=== PATIENT | female | born 1970 | race African-American/Black ===

== ENCOUNTER 2018-02-26 16:00 | Observation (INO) | payer OTHER ==
--- NOTE | 2018-02-26 16:41 | PDOC ---
History of Present Illness - History of Present Illness Initial Comments: 48yo F with family history of HTN, HLD presenting with episode of facial numbness. Patient reports she was talking on the phone around 2:30pm yesterday when she suddenly felt numbness on the left side of her face, below her eye and extending down to her chin. She looked in the mirror and saw no facial drooping or lopsided smile. Patient denies dysarthria or difficult word finding. She reports no other focal neurologic defects. She took two alleve and the episode ended after about a half hour. Patient saw her primary care physician, Dr. Gutierrez , today who recommended that she come to the ED to be assessed for TIA. 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 No family or personal history of TIA or CVA. Patient current feels like she is at her baseline and denies fever, chills, chest pain, or shortness of breath. <Swathi Shafer - Last Filed: 02/26/18 20:02> <Gesron Billings - Last Filed: 02/26/18 22:42> - General Chief Complaint: Head/Neck problem Stated Complaint: PCP SENT/NUMBNESS Time Seen by Provider: 02/26/18 16:40 NIH Stroke Scale - Last Known Well Date/Time & Onset Date Last Known Well: 02/25/18 Time Last Known Well: 02:30 - Initial Evaluation Level of consciousness: Alert Ask patient the month and their age: Answers both correctly Ask patient to open & close eyes; make fist and let go: Obeys both correctly Best gaze (horizontal eye movement): Normal Visual field testing: No visual field loss Facial paresis (Show teeth/raise eyebrows/close eyes tight): Normal symmetrical movement Motor Function: Left Arm: Normal Motor Function: Right Arm: Normal (extends arm 90 (or 45) degrees for 10 seconds without drift Motor Function: Left Leg: Normal (extends leg 30 degrees for 5 seconds without drift) Motor Function: Right Leg: Normal (extends leg 30 degrees for 5 seconds without drift) Limb Ataxia: No ataxia Sensory(Use pinprick test arms,legs,trunk,face/side to side): Normal Best language (Describe picture, name items, read sentences): No Aphasia Dysarthria (read several words): Normal articulation Extinction and Inattention: No abnormality - Total Score NIH Stroke Scale Score: 0 <Gerson Billings - Last Filed: 02/26/18 22:42> Past History - Past Medical History COPD: No CHF: No - Immunization History Immunization Up to Date: Yes - Suicide/Smoking/Psychosocial Hx Smoking History: Never smoked Have you smoked in the past 12 months: No Information on smoking cessation initiated: No Hx Alcohol Use: No Drug/Substance Use Hx: No Substance Use Type: None <SoniSwathi - Last Filed: 02/26/18 20:02> <Gerson Billings - Last Filed: 02/26/18 22:42> - Past Medical History Allergies/Adverse Reactions: Allergies Allergy/AdvReac Type Severity Reaction Status Date / Time No Known Drug Allergies Allergy Verified 02/26/18 17:37 Home Medications: Ambulatory Orders NK [No Known Home Medication] 02/26/18 Review of Systems - Review of Systems Comments:: Constitutional: no fever, no chills HEENT: no throat pain, no dysphagia Cardiovascular: no chest pain, no palpitations Respiratory: no cough, no shortness of breath Gastrointestinal: no abdominal pain, no nausea, no vomiting Genitourinary: no dysuria, no frequency Musculoskeletal: no myalgia, no arthralgia Skin: no rash, no itching Neurologic: no headache, no dizziness <SoniSwathi - Last Filed: 02/26/18 20:02> *Physical Exam - Vital Signs Last Vital Signs Temp Pulse Resp BP Pulse Ox 98.2 F 108 H 17 142/93 99 02/26/18 16:15 02/26/18 16:15 02/26/18 16:15 02/26/18 16:15 02/26/18 16:15 - Physical Exam Comments: General: Awake, alert, and fully oriented, in no acute distress Head: no signs of trauma Eyes: EOMI, sclera anicteric ENT: Moist mucus membranes Neck: Normal ROM, supple Lungs: Lungs clear, Normal breath sounds Cardio: Regular rhythm, S1 and S2 present Abdomen: Soft, nontender. No guarding, no rebound, no masses Extremities: Normal range of motion, Distal pulses present SKIN: Warm, Dry, normal turgor Neurologic: Cranial nerves II through XII grossly intact. Normal speech, sensation, strength, coordination, and gait. <So,Swathi - Last Filed: 02/26/18 20:02> - Vital Signs Last Vital Signs Temp Pulse Resp BP Pulse Ox 98.2 F 108 H 17 142/93 99 02/26/18 16:15 02/26/18 16:15 02/26/18 16:15 02/26/18 16:15 02/26/18 16:15 <Gerson Billings - Last Filed: 02/26/18 22:42> ED Treatment Course - LABORATORY CBC & Chemistry Diagram: 02/26/18 17:34 02/26/18 17:34 <Swathi Shafer - Last Filed: 02/26/18 20:02> - LABORATORY CBC & Chemistry Diagram: 02/26/18 17:34 02/26/18 17:34 - ADDITIONAL ORDERS Additional order review: Laboratory Results 02/26/18 02/26/18 02/26/18 20:55 17:34 17:34 PT with INR INR Sodium 137 Potassium 4.3 Chloride 105 Carbon Dioxide 24 Anion Gap 8 BUN 9 Creatinine 0.9 Creat Clearance w eGFR > 60 Random Glucose 87 Calcium 9.5 Total Bilirubin 0.4 AST 19 ALT 31 Alkaline Phosphatase 110 Total Protein 8.0 Albumin 3.9 Blood Type B POSITIVE B POSITIVE Antibody Screen Negative 02/26/18 17:34 PT with INR 11.90 INR 1.01 Sodium Potassium Chloride Carbon Dioxide Anion Gap BUN Creatinine Creat Clearance w eGFR Random Glucose Calcium Total Bilirubin AST ALT Alkaline Phosphatase Total Protein Albumin Blood Type Antibody Screen 02/26/18 17:34 RBC 5.02 MCV 85.0 MCHC 32.6 RDW 14.4 MPV 8.5 Neutrophils % 59.1 Lymphocytes % 32.9 Monocytes % 7.0 Eosinophils % 0.7 Basophils % 0.3 - RADIOLOGY Radiology Studies Ordered: Category Date Time Status CHEST PA & LAT [RAD] Stat Radiology 02/26/18 21:43 Ordered - Medications Given in the ED: ED Medications Discontinued Medications Generic Name Dose Route Start Last Admin Trade Name Freq PRN Reason Stop Dose Admin Aspirin 162 mg 02/26/18 21:25 02/26/18 21:37 Asa - PO 02/26/18 21:26 162 mg ONCE ONE Administration <Gerson Billings - Last Filed: 02/26/18 22:42> Medical Decision Making - Medical Decision Making 48yo F with family history of HTN, HLD presenting with episode of facial numbness. -DDX includes but not limited to TIA, CVA, brain bleed, brain mass, Afib, PE/DVT , MS, Lyme -ABCD score is 2 which puts patient in low risk category; possible discharge with outpatient neurology follow-up -CT head negative for acute pathology -Pending carotid ultrasound radiology report and EKG -Care assumed by Dr. Stewart 02/26/18 20:04 <Swathi Shafer - Last Filed: 02/26/18 20:02> *DC/Admit/Observation/Transfer <Swathi Shafer - Last Filed: 02/26/18 20:02> - Discharge Dispostion Decision to Admit order: Yes <Gerson Billings - Last Filed: 02/26/18 22:42> Diagnosis at time of Disposition: TIA (transient ischemic attack) - Discharge Dispostion Condition at time of disposition: Fair - Referrals Referrals: Mag Laguerre MD [Primary Care Provider] -
--- NOTE | 2018-02-26 17:27 | PDOC ---
Attending Attestation - HPI HPI: 02/26/18 19:28 The patient is a 48 year old female, with no significant past medical history, who presents to the ED complaining of left sided facial weakness. She notes that her symptoms started 24 hours ago and lasted 30 minutes. The patient denies chest pain, shortness of breath, headache and dizziness. Denies fever, chills, nausea, vomiting, diarrhea or constipation. Denies dysuria , frequency, urgency and hematuria. Family history: HTN Allergies: None Past surgical history: None reported Social History: No alcohol, tobacco or drug use reported <Ari Andres - Last Filed: 02/26/18 19:28> - Resident Resident Name: Swathi Shafer - ED Attending Attestation I have performed the following: I have examined & evaluated the patient, The case was reviewed & discussed with the resident, I agree w/resident's findings & plan, Exceptions are as noted - Physicial Exam PE: 02/26/18 18:18 Patient is awake and alert, well-nourished, in no distress. Patient is symptom- free. Normocephalic and atraumatic PERRLA, EOMI No carotid bruits bilaterally CTA RRR cranial nerves II through XII are grossly intact; motor is 5 of 54; no pronation drift; gait is stable. - Medical Decision Making 02/26/18 18:20 48-year-old female with family history of hypertension presents to the ER 24 hours after a 30 minute, self limiting episode of left sided facial numbness and questionable lower facial weakness. In the ER, patient is asymptomatic. TIAs suspected. ABCD score is noted to be 4. Will obtain CT of head to rule out intracranial hemorrhage; will obtain carotid Doppler as well as EKG to rule out atrial fibrillation. We'll consult neurology. Will reassess. 02/26/18 22:[address] of head shows no evidence of acute intracranial pathology. Carotid Doppler ultrasound shows no evidence of significant stenosis. EKG shows no evidence of A. fib or acute ischemia. Will administer aspirin. We'll place an op 's/telemetry for neurological evaluation. NIHH stroke is 0. <Gerson Billings - Last Filed: 02/26/18 22:41>
[2018-02-26 17:44] LABS: BASO % 0.3 % (0-2.0); EOS % 0.7 % (0-4.5); HEMATOCRIT 42.7 % (32.4-45.2); HEMOGLOBIN 13.9 GM/dL (10.7-15.3); LYMPH % 32.9 % (8-40); MCH 27.8 pg (25.7-33.7); MCHC 32.6 g/dl (32.0-36.0); MEAN PLT VOLUME 8.5 fl (7.5-11.1); NEUT % 59.1 % (42.8-82.8); PLATELET COUNT 360 K/MM3 (134-434); RBC 5.02 M/mm3 (3.60-5.2); RDW 14.4 % (11.6-15.6); WHITE BLOOD COUNT 6.9 K/mm3 (4.0-10.0)
[2018-02-26 17:54] LABS: INR 1.01 (0.83-1.09); PROTHROMBIN TIME (PATIENT) 11.9 SEC (9.7-13.0)
[2018-02-26 18:14] LABS: ALBUMIN 3.9 g/dl (3.4-5.0); ALK PHOS 110 U/L (45-117); ANION GAP 8 MMOL/L (8-16); BILIRUBIN,TOTAL 0.4 mg/dL (0.2-1); BLOOD UREA NITROGEN 9 mg/dL (7-18); CALCIUM 9.5 mg/dL (8.5-10.1); CHLORIDE 105 mmol/L (98-107); CO2 24 mmol/L (21-32); CREATININE 0.9 mg/dL (0.55-1.3); GLUCOSE,RANDOM 87 mg/dL (74-106); POTASSIUM 4.3 mmol/L (3.5-5.1); SGOT/AST 19 U/L (15-37); SGPT/ALT 31 U/L (13-61); SODIUM 137 mmol/L (136-145)
[2018-02-26] MEDS ORDERED: ASPIRIN 81 MG CHEWABLE TABLETS PO ONE (21:25)
[2018-02-26] MEDS ORDERED: ASPIRIN 81 MG CHEWABLE TABLETS ONE (21:36)
[2018-02-26] MEDS ORDERED: SODIUM CHLORIDE 1,000 ML IV SCH (21:45)
--- NOTE | 2018-02-26 22:11 | HP ---
CHIEF COMPLAINT: Facial Numbness PCP: Dr. Laguerre HISTORY OF PRESENT ILLNESS: This is a pleasant 48 y/o woman with a past medical history of HTN (no current meds). Who presents to the ED from her PCP's office with elevated BP, L-sided facial numbness and L- sided droop x 1 day now resolved. Patient reports while at work she began having L sided facial numbness/droop, and lightheadedness for approximately 30 min. Patient reports taking 2 Aleeve at home. Patient reports having a family hx of [place], HTN. Patient denies fever, chills, cough, CARRILLO, blurred vision, dysarthria, dysphagia, SOB, CP, palpitations, N/V/D, constipation, dysuria. ER course was notable for: (1) Head CT- neg ICH (2) Carotid Doppler- no evidence of hemodynamically significant stenosis (3) EKG- NSR 97 bpm, non specific T wave abnormality (4) BP 142/93 Recent Travel: None PAST MEDICAL HISTORY: HTN PAST SURGICAL HISTORY: None Social History: Smoking: Never Alcohol: Social Drugs: Never Lives with family, employed Install [employer] Family History: Father: DM Mother: HTN Brother: [place] age 43 Sister: Alive and Well Allergies No Known Drug Allergies Allergy (Verified 02/26/18 17:37) HOME MEDICATIONS: Home Medications Medication Instructions Recorded NK [No Known Home Medication] 02/26/18 REVIEW OF SYSTEMS CONSTITUTIONAL: Absent: fever, chills, diaphoresis, generalized weakness, malaise, loss of appetite, weight change HEENT: Absent: rhinorrhea, nasal congestion, throat pain, throat swelling, difficulty swallowing, mouth swelling, ear pain, eye pain, visual changes CARDIOVASCULAR: lightheadedness Absent: chest pain, syncope, palpitations, irregular heart rate, lightheadedness , peripheral edema RESPIRATORY: Absent: cough, shortness of breath, dyspnea with exertion, orthopnea, wheezing, stridor, hemoptysis GASTROINTESTINAL: Absent: abdominal pain, abdominal distension, nausea, vomiting, diarrhea, constipation, melena, hematochezia GENITOURINARY: Absent: dysuria, frequency, urgency, hesitancy, hematuria, flank pain, genital pain MUSCULOSKELETAL: Absent: myalgia, arthralgia, joint swelling, back pain, neck pain SKIN: Absent: rash, itching, pallor HEMATOLOGIC/IMMUNOLOGIC: Absent: easy bleeding, easy bruising, lymphadenopathy, frequent infections ENDOCRINE: Absent: unexplained weight gain, unexplained weight loss, heat intolerance, cold intolerance NEUROLOGIC: paresthesias Absent: headache, focal weakness, dizziness, unsteady gait, seizure, mental status changes, bladder or bowel incontinence PSYCHIATRIC: Absent: anxiety, depression, suicidal or homicidal ideation, hallucinations. PHYSICAL EXAMINATION Vital Signs - 24 hr 02/26/18 16:15 Temperature 98.2 F Pulse Rate 108 H Respiratory 17 Rate Blood Pressure 142/93 O2 Sat by Pulse 99 Oximetry (%) GENERAL: Obese, awake, alert, and fully oriented, in no acute distress. HEAD: Normal with no signs of trauma. EYES: Pupils equal, round and reactive to light, extraocular movements intact, sclera anicteric, conjunctiva clear. No lid lag. EARS, NOSE, THROAT: Ears normal, nares patent, oropharynx clear without exudates. Moist mucous membranes. NECK: Normal range of motion, supple without lymphadenopathy, JVD, or masses. LUNGS: Breath sounds equal, clear to auscultation bilaterally. No wheezes, and no crackles. No accessory muscle use. HEART: Regular rate and rhythm, normal S1 and S2 without murmur, rub or gallop. ABDOMEN: Soft, nontender, not distended, normoactive bowel sounds, no guarding, no rebound, no masses. No hepatomegaly or splenomegaly. MUSCULOSKELETAL: Normal range of motion at all joints. No bony deformities or tenderness. No CVA tenderness. UPPER EXTREMITIES: 2+ pulses, warm, well-perfused. No cyanosis. No clubbing. No peripheral edema. LOWER EXTREMITIES: 2+ pulses, warm, well-perfused. No calf tenderness. No peripheral edema. NEUROLOGICAL: Cranial nerves II-XII intact. Normal speech. Gait not observed. PSYCHIATRIC: Cooperative. Good eye contact. Appropriate mood and affect. SKIN: Warm, dry, normal turgor, no rashes or lesions noted, normal capillary refill. Laboratory Results - last 24 hr 02/26/18 02/26/18 02/26/18 17:34 17:34 17:34 WBC 6.9 RBC 5.02 Hgb 13.9 Hct 42.7 MCV 85.0 MCH 27.8 MCHC 32.6 RDW 14.4 Plt Count 360 MPV 8.5 Absolute Neuts (auto) 4.1 Neutrophils % 59.1 Lymphocytes % 32.9 Monocytes % 7.0 Eosinophils % 0.7 Basophils % 0.3 Nucleated RBC % 0 PT with INR 11.90 INR 1.01 Sodium 137 Potassium 4.3 Chloride 105 Carbon Dioxide 24 Anion Gap 8 BUN 9 Creatinine 0.9 Creat Clearance w eGFR > 60 Random Glucose 87 Calcium 9.5 Total Bilirubin 0.4 AST 19 ALT 31 Alkaline Phosphatase 110 Total Protein 8.0 Albumin 3.9 Blood Type Antibody Screen 02/26/18 02/26/18 17:34 20:55 WBC RBC Hgb Hct MCV MCH MCHC RDW Plt Count MPV Absolute Neuts (auto) Neutrophils % Lymphocytes % Monocytes % Eosinophils % Basophils % Nucleated RBC % PT with INR INR Sodium Potassium Chloride Carbon Dioxide Anion Gap BUN Creatinine Creat Clearance w eGFR Random Glucose Calcium Total Bilirubin AST ALT Alkaline Phosphatase Total Protein Albumin Blood Type B POSITIVE B POSITIVE Antibody Screen Negative ASSESSMENT/PLAN: This is a 48 y/o woman with a PMHx of HTN ( no current meds). Placed in Telemetry Observation for TIA for further evaluation of their emergent condition. Plan: FEN PO fluids as tolerated Replete lytes prn Low Na, Low Cholesterol Diet DVT ppx OOB SCDs Consider AC if LOS > 48hrs Code Status: Full Code Dispo: Observation Problem List - Problem (1) TIA (transient ischemic attack) Assessment/Plan: r/o TIA vs CVA NIHSS [address]- neg ICH, mass or lesion Carotid Doppler- no evidence of hemodynamically significant stenosis Nuero checks Appreciate Neurology Consult Swallow Eval Serial Enzymes Asa Lipid Panel-pending Code(s): G45.9 - TRANSIENT CEREBRAL ISCHEMIC ATTACK, UNSPECIFIED (2) Hypertension Assessment/Plan: - Patient reports being told her BP was elevated 160/90, 2 yrs ago her PCP was monitoring it - Patient would benefit from a Thiazide - Monitor BP - Low Na Diet - Monitor renal function Code(s): I10 - ESSENTIAL (PRIMARY) HYPERTENSION (3) Obesity (BMI 30.0-34.9) Assessment/Plan: Counseled on weight reduction and Carb control Code(s): E66.9 - OBESITY, UNSPECIFIED Visit type - Emergency Visit Emergency Visit: Yes ED Registration Date: 02/26/18 Care time: The patient presented to the Emergency Department on the above date and was hospitalized for further evaluation of their emergent condition. - New Patient This patient is new to me today: Yes Date on this admission: 02/26/18 - Critical Care Critical Care patient: No
[2018-02-26 23:26] LABS: INR 1.08 (0.83-1.09); PROTHROMBIN TIME (PATIENT) 12.8 SEC (9.7-13.0)
[2018-02-26 23:38] LABS: CHOLESTEROL 162 mg/dL (50-200); HDL CHOLESTEROL 44 mg/dL (40-60); TRIGLYCERIDES 65 mg/dL (0-150)
[2018-02-27 02:46] VITALS: BMI 30.6
[2018-02-27 05:55] VITALS: TEMP 98.2
[2018-02-27 06:39] LABS: ANION GAP 8 MMOL/L (8-16); BLOOD UREA NITROGEN 12 mg/dL (7-18); CALCIUM 8.8 mg/dL (8.5-10.1); CHLORIDE 109 mmol/L (98-107); CO2 25 mmol/L (21-32); CREATININE 0.9 mg/dL (0.55-1.3); GLUCOSE,RANDOM 103 mg/dL (74-106); POTASSIUM 4.1 mmol/L (3.5-5.1); SODIUM 142 mmol/L (136-145)
[2018-02-27 07:04] LABS: BASO % 0.4 % (0-2.0); EOS % 1.8 % (0-4.5); HEMATOCRIT 38.9 % (32.4-45.2); HEMOGLOBIN 12.6 GM/dL (10.7-15.3); LYMPH % 40.4 % (8-40); MCH 27.5 pg (25.7-33.7); MCHC 32.5 g/dl (32.0-36.0); MEAN CELL VOLUME 84.6 fl (80-96); MEAN PLT VOLUME 8.1 fl (7.5-11.1); NEUT % 46.4 % (42.8-82.8); PLATELET COUNT 294 K/MM3 (134-434); RBC 4.59 M/mm3 (3.60-5.2); RDW 14.5 % (11.6-15.6); WHITE BLOOD COUNT 6.8 K/mm3 (4.0-10.0)
--- NOTE | 2018-02-27 09:27 | CONSULT ---
Consult - text type - Consultation Consultation Note: Neurology CHIEF COMPLAINT: Facial Numbness PCP: Dr. Laguerre HISTORY OF PRESENT ILLNESS: 48 y/o woman with a past medical history of HTN (no current meds) who presented to the ED from her PCP's office with elevated BP, L-sided facial numbness and L - sided droop x 1 day. Patient reported while at work she began having L sided facial numbness/droop, and lightheadedness for approximately 30 min. Patient reported taking 2 Aleeve at home. Patient reported having a family hx of [place], HTN. Patient denies fever, chills, cough, CARRILLO, blurred vision, dysarthria, dysphagia, SOB, CP, palpitations, N/V/D, constipation, dysuria. She was admitted for further work up and Ct head completed, no acute changes. Carotid dopplers completed and no evidence of hemodynamically significant stenosis. Neurologically stable, about to have Echo this AM. Of note, increased BP at home and not on medication for it but says she is likely to start. Recent Travel: None PAST MEDICAL HISTORY: HTN PAST SURGICAL HISTORY: None Social History: Smoking: Never Alcohol: Social Drugs: Never Lives with family, employed [employer] Family History: Father: DM Mother: HTN Brother: [place] age 43 Sister: Alive and Well Allergies No Known Drug Allergies Allergy (Verified 02/26/18 17:37) HOME MEDICATIONS: Home Medications Medication Instructions Recorded NK [No Known Home Medication] 02/26/18 REVIEW OF SYSTEMS CONSTITUTIONAL: Absent: fever, chills, diaphoresis, generalized weakness, malaise, loss of appetite, weight change HEENT: Absent: rhinorrhea, nasal congestion, throat pain, throat swelling, difficulty swallowing, mouth swelling, ear pain, eye pain, visual changes CARDIOVASCULAR: lightheadedness Absent: chest pain, syncope, palpitations, irregular heart rate, lightheadedness , peripheral edema RESPIRATORY: Absent: cough, shortness of breath, dyspnea with exertion, orthopnea, wheezing, stridor, hemoptysis GASTROINTESTINAL: Absent: abdominal pain, abdominal distension, nausea, vomiting, diarrhea, constipation, melena, hematochezia GENITOURINARY: Absent: dysuria, frequency, urgency, hesitancy, hematuria, flank pain, genital pain MUSCULOSKELETAL: Absent: myalgia, arthralgia, joint swelling, back pain, neck pain SKIN: Absent: rash, itching, pallor HEMATOLOGIC/IMMUNOLOGIC: Absent: easy bleeding, easy bruising, lymphadenopathy, frequent infections ENDOCRINE: Absent: unexplained weight gain, unexplained weight loss, heat intolerance, cold intolerance NEUROLOGIC: paresthesias Absent: headache, focal weakness, dizziness, unsteady gait, seizure, mental status changes, bladder or bowel incontinence PSYCHIATRIC: Absent: anxiety, depression, suicidal or homicidal ideation, hallucinations. PHYSICAL EXAMINATION Vital Signs - 24 hr 02/26/18 16:15 Temperature 98.2 F Pulse Rate 108 H Respiratory 17 Rate Blood Pressure 142/93 O2 Sat by Pulse 99 Oximetry (%) GENERAL: Obese, awake, alert, and fully oriented, in no acute distress. HEAD: Normal with no signs of trauma. EYES: Pupils equal, round and reactive to light, extraocular movements intact, sclera anicteric, conjunctiva clear. No lid lag. EARS, NOSE, THROAT: Ears normal, nares patent, oropharynx clear without exudates. Moist mucous membranes. NECK: Normal range of motion, supple without lymphadenopathy, JVD, or masses. LUNGS: Breath sounds equal, clear to auscultation bilaterally. No wheezes, and no crackles. No accessory muscle use. HEART: Regular rate and rhythm, normal S1 and S2 without murmur, rub or gallop. ABDOMEN: Soft, nontender, not distended, normoactive bowel sounds, no guarding, no rebound, no masses. No hepatomegaly or splenomegaly. MUSCULOSKELETAL: Normal range of motion at all joints. No bony deformities or tenderness. No CVA tenderness. UPPER EXTREMITIES: 2+ pulses, warm, well-perfused. No cyanosis. No clubbing. No peripheral edema. LOWER EXTREMITIES: 2+ pulses, warm, well-perfused. No calf tenderness. No peripheral edema. NEUROLOGICAL: Cranial nerves II-XII intact. Normal speech. Sensory intact, strenght equal b/l, finger to nose normal PSYCHIATRIC: Cooperative. Good eye contact. Appropriate mood and affect. SKIN: Warm, dry, normal turgor, no rashes or lesions noted, normal capillary refill. Laboratory Results - last 24 hr 02/26/18 02/26/18 02/26/18 17:34 17:34 17:34 WBC 6.9 RBC 5.02 Hgb 13.9 Hct 42.7 MCV 85.0 MCH 27.8 MCHC 32.6 RDW 14.4 Plt Count 360 MPV 8.5 Absolute Neuts (auto) 4.1 Neutrophils % 59.1 Lymphocytes % 32.9 Monocytes % 7.0 Eosinophils % 0.7 Basophils % 0.3 Nucleated RBC % 0 PT with INR 11.90 INR 1.01 Sodium 137 Potassium 4.3 Chloride 105 Carbon Dioxide 24 Anion Gap 8 BUN 9 Creatinine 0.9 Creat Clearance w eGFR > 60 Random Glucose 87 Calcium 9.5 Total Bilirubin 0.4 AST 19 ALT 31 Alkaline Phosphatase 110 Total Protein 8.0 Albumin 3.9 Blood Type Antibody Screen 02/26/18 02/26/18 17:34 20:55 WBC RBC Hgb Hct MCV MCH MCHC RDW Plt Count MPV Absolute Neuts (auto) Neutrophils % Lymphocytes % Monocytes % Eosinophils % Basophils % Nucleated RBC % PT with INR INR Sodium Potassium Chloride Carbon Dioxide Anion Gap BUN Creatinine Creat Clearance w eGFR Random Glucose Calcium Total Bilirubin AST ALT Alkaline Phosphatase Total Protein Albumin Blood Type B POSITIVE B POSITIVE Antibody Screen Negative ASSESSMENT/PLAN: 48 y/o woman with a past medical history of HTN (no current meds) who presented to the ED from her PCP's office with elevated BP, L-sided facial numbness and L - sided droop x 1 day. Patient reported while at work she began having L sided facial numbness/droop, and lightheadedness for approximately 30 min. Patient reported taking 2 Aleeve at home. Patient reported having a family hx of [place], HTN. Patient denies fever, chills, cough, CARRILLO, blurred vision, dysarthria, dysphagia, SOB, CP, palpitations, N/V/D, constipation, dysuria. She was admitted for further work up and Ct head completed, no acute changes. Carotid dopplers completed and no evidence of hemodynamically significant stenosis. Neurologically stable, about to have Echo this AM. Of note, increased BP at home and not on medication for it but says she is likely to start. In agreement with this, will not pursue further imaging at this time. Follow up echo results , diet modifications recommended, maintain adequate hydration. DVT ppx, patient ambulatory.
[2018-02-27 09:43] LABS: URINE APPEARANCE SLCLOUDY; URINE BILIRUBIN NEGATIVE (<2.0 mg/dL); URINE COLOR YELLOW; URINE GLUCOSE (UA) NEGATIVE (NEGATIVE); URINE KETONE NEGATIVE (NEGATIVE); URINE LEUK ESTERASE NEGATIVE (NEGATIVE); URINE NITRITE POSITIVE (NEGATIVE); URINE PROTEIN NEGATIVE (NEGATIVE); URINE UROBILINOGEN NEGATIVE mg/dL (0.2-1.0)
[2018-02-27 09:47] LABS: EPI CELLS RARE /HPF (FEW); URINE BACTERIA FEW /hpf (NONE SEEN); URINE MUCUS RARE
[2018-02-27 10:00] VITALS: BP 126/96; PULSE 104
[2018-02-27] MEDS ORDERED: MULTIVITAMINS (DAILY MVI) TABLET (FP) PO SCH (10:00)
[2018-02-27] MEDS ORDERED: ASPIRIN 81 MG CHEWABLE TABLETS PO SCH (10:00)
--- NOTE | 2018-02-27 10:34 | ECHO ---
Name: NASEEM HURST Exam:Adult Echocardiogram Study Date: 02/27/2018 09:18 AM Age: 48 yrs Reason For Study: TIA Height: 64 in Weight: 180 lb BSA: 1.9 m2 MMode/2D Measurements & Calculations IVSd: 0.94 cm Ao root diam: 3.1 cm LVIDd: 2.5 cm LVIDs: 1.6 cm LVPWd: 1.5 cm EDV(Teich): 21.9 ml LVOT diam: 1.9 cm ESV(Teich): 7.0 ml RV S Jose Miguel: 11.9 cm/sec Doppler Measurements & Calculations Med Peak E' Jose Miguel: 10.4 cm/sec Lat Peak E' Jose Miguel: 14.5 cm/sec Procedure A complete two-dimensional transthoracic echocardiogram was performed (2D, M-mode, Doppler and color flow Doppler). The study was technically difficult with many images being suboptimal in quality. Left Ventricle The left ventricular size, thickness and function are normal. The left ventricular ejection fraction is normal. Ejection Fraction = 60-65%. Regional wall motion abnormalities cannot be excluded due to limi mirella visualization. Right Ventricle The right ventricle is normal in size and function. Atria Normal left and right atrial size and function. Mitral Valve There is no mitral regurgitation noted. Tricuspid Valve No tricuspid regurgitation. There was insufficient TR detected to calculate RV systolic pressure. Aortic Valve No hemodynamically significant valvular aortic stenosis. No aortic regurgitation is present. Pulmonic Valve There is no pulmonic valvular regurgitation. Great Vessels The aortic root is normal size. Pericardium/Pleura There is no pericardial effusion. Interpretation Summary The study was technically difficult with many images being suboptimal in quality. The left ventricular size, thickness and function are normal Regional wall motion abnormalities cannot be excluded due to limited visualization. The right ventricle is normal in size and function. No significant valvular abnormalities. MD Catrachito Paige 02/27/2018 10:33 AM
--- NOTE | 2018-02-27 11:47 | EKG ---
Test Reason : Blood Pressure : / mmHG Vent. Rate : 097 BPM Atrial Rate : 097 BPM P-R Int : 156 ms QRS Dur : 066 ms QT Int : 350 ms P-R-T Axes : 042 004 -02 degrees QTc Int : 444 ms NORMAL SINUS RHYTHM NONSPECIFIC T WAVE ABNORMALITY ABNORMAL ECG NO PREVIOUS ECGS AVAILABLE Confirmed by PHOENIX SALAZAR, BERTA ([id number]) on 02/27/2018 11:46:56 AM Referred By: Confirmed By:BERTA GARIBAY MD
--- NOTE | 2018-02-27 12:33 | DS ---
Physical Examination Vital Signs: Vital Signs Temperature 36.8 C 02/27/18 09:59 Pulse Rate 104 H 02/27/18 09:59 Respiratory Rate 18 02/27/18 09:59 Blood Pressure 126/96 02/27/18 09:59 O2 Sat by Pulse Oximetry (%) 96 02/27/18 07:00 Constitutional: Yes: No Distress, Calm, Obese Cardiovascular: Yes: Regular Rate and Rhythm. No: Gallop, Murmur, Rub Respiratory: Yes: Regular, CTA Bilaterally. No: Rales, Rhonchi, Wheezes Gastrointestinal: Yes: Normal Bowel Sounds, Soft. No: Distention, Tenderness Extremities: Yes: WNL Edema: No Labs: CBC, BMP 02/27/18 06:00 02/27/18 06:00 Discharge Summary Reason For Visit: TRANSIENT ISCHEMIA ATTACK Current Active Problems Hypertension (Acute) Obesity (BMI 30.0-34.9) (Acute) TIA (transient ischemic attack) (Acute) Hospital Course: Ms Amador is a very pleasant 48 year old female who comes in with concern for TIA. She was admitted to telemetry observation. Head CT negative. ECHO and carotid ultrasound negative. Seen by neurology and cleared. Will discharge home on baby aspirin. Possibly secondary to HTN. She should follow up with Dr Laguerre and Dr Deal for further evaluation as an outpatient. She is safe for discharge home. Condition: Good - Instructions Diet, Activity, Other Instructions: resume previous diet and activity Referrals: Mag Laguerre MD [Primary Care Provider] - Dionicio Deal MD [Staff Physician] - Disposition: HOME - Home Medications Comprehensive Discharge Medication List: Ambulatory Orders Aspirin [ASA -] 81 mg PO DAILY tab.chew 02/27/18 Multivitamin [One Daily] 1 each PO DAILY 02/27/18 [place]-3S/Dha/Epa/Fish Oil [Fish Oil 1,200 mg Softgel] 1 each PO DAILY 02/27/18
--- NOTE | 2018-02-27 13:59 | PN ---
Progress Note, SENIOR DIRECTOR INSIGHT - Note Progress Note: Pt discharged before my evaluation could be performed.
== END 2018-02-27 14:49 | disposition home or self-care (01) ==
LOC: JER 16:00 → JERBED 22:42 → UNDOADMOB 23:46 → J4S 02-27 02:19 → JERBED 02-27 02:19
PROVIDERS: ADMIT Internal Medicine; ATTEND Internal Medicine
DX: G45.9 Transient cerebral ischemic attack, unspecified (principal); I10 Essential (primary) hypertension; E66.9 Obesity, unspecified; Z68.30 Body mass index [BMI] 30.0-30.9, adult; Z83.49 Family history of other endocrine, nutritional and metabolic diseases; Z82.49 Family history of ischemic heart disease and other diseases of the circulatory system
CPT/HCPCS: 36415; 70450-TC; 71046-TC-FY; 80048; 80053; 81003; 81015; 82465; 82550; 82553; 83718; 83721; 84478; 84484; 85025; 85610; 86850; 86900; 86901; 93005; 93010; 93306-TC; 93880-TC; 99285-25; G0378; J7030

== ENCOUNTER 2021-04-21 16:28 | Emergency (ER) | payer OTHER ==
[2021-04-21 16:52] VITALS: TEMP 97.3; BMI 30.9
[2021-04-21] MEDS ORDERED: METOCLOPRAMIDE HCL 10 MG TABLET (FP) PO ONE ×2 (17:22→17:30)
[2021-04-21] MEDS ORDERED: ACETAMINOPHEN 325 MG TABLET (FP) PO ONE (17:22)
[2021-04-21] MEDS ORDERED: ACETAMINOPHEN 325 MG TABLET (FP) ONE (17:30)
[2021-04-21 18:42] VITALS: BP 130/90; PULSE 79
== END 2021-04-21 20:30 | disposition home or self-care (01) ==
LOC: JER 16:28
DX: R51.9 Headache, unspecified (principal); I10 Essential (primary) hypertension
CPT/HCPCS: 70450-TC; 93005; 93010; 99284-25

== ENCOUNTER 2021-10-23 07:23 | Day surgery (SDC) | payer OTHER ==
[2021-10-20 10:24] VITALS: BMI 30.9
[2021-10-23] MEDS ORDERED: LIDOCAINE HCL/PF 2% SDV 5ML VIAL ONE (07:55)
[2021-10-23] MEDS ORDERED: PROPOFOL 20 ML ONE ×4 (07:55)
[2021-10-23] MEDS ORDERED: PHENYLEPHRINE HCL 10 MG/1 ML SINGLE DOSE VIAL ONE (08:11)
[2021-10-23] MEDS ORDERED: GLYCOPYRROLATE 0.2 MG/1 ML VIAL ONE (08:11)
[2021-10-23 08:50] VITALS: PULSE 86; TEMP 97.4
[2021-10-23 09:34] VITALS: BP 122/82
== END 2021-10-23 09:25 | disposition home or self-care (01) ==
LOC: FASU-ENDO 07:23
PROVIDERS: ATTEND Internal Medicine Gastroenterology
PROC: 0DJD8ZZ Inspection of Lower Intestinal Tract, Via Natural or Artificial Opening Endoscopic (ICD-10-PCS; principal; 2021-10-23 08:27)
DX: Z12.11 Encounter for screening for malignant neoplasm of colon (principal); Z86.010 Personal history of colon polyps
CPT/HCPCS: 81025